=== PATIENT | female | born 1980 | race Caucasian/White ===

== ENCOUNTER 2025-01-05 13:05 | Outpatient (AMB) | payer MEDICARE, MEDICAID, SELFPAY ==
--- NOTE | 2025-01-05 13:08 | A.OFFVIS_ITS ---
Vital Signs 01/05/25 13:17 Height 5 ft 1 in Weight 174 lb 2.643 oz BMI 32.9 BP 116/70 Blood Pressure Location Rt brachial Position Sitting Pulse 68 Pulse Source Pulse Oximeter Pulse Oximetry (%) 99 Oxygen Delivery Method Room Air Intake Visit Reasons: Thyroid nodules Intake Note: New Patient presents here today to establish treatment for Thyroid Nodules: Former Hand Required: No Accompanied by: Mother Allergies No Known Allergies Allergy (Verified 01/05/25 13:19) Medication List - Last Reconciled 01/05/25 by Cierra Collins MD acetaminophen (Tylenol) 325 mg PO QID PRN buprenorphine ER (Sublocade) mg subcut clonidine HCl 0.1 mg PO TID PRN etonogestrel-ethinyl estradiol 0.12-0.015 mg/24 hr vag rings vaginal fluconazole 150 mg PO DAILY linaclotide (Linzess) 145 mcg PO DAILY lorazepam 0.5 mg PO meloxicam 15 mg PO DAILY metformin ER 500 mg PO DAILY propranolol 10 mg PO TID sennosides-docusate sodium 8.6-50 mg (Senexon-S) 2 tabs PO DAILY PRN trazodone 50 mg PO BEDTIME HPI Comments Details: 44 years old female with past medical history of vitamin-D deficiency, prediabetes, opiate abuse in remission, hyperlipidemia, seen in the office for evaluation of thyroid nodules. Patient is vague in her description, she reports that her labs are up and down for many years. She has never had any treatment as she failed to follow up with endocrinology. She denies changes in her symptoms. Her PCP ordered the US and thyroid labs given history of thyroid disease, but not due to new symptoms. Palpitations Heat/cold intolerance: yes, has hot flashes for years after having her daugher. Lately feeling freezing/cold all the time Weight loss: initially gained but in the last year or so has lost some weight Increased appetite: poor Tremor: yes Anxiety/irritability: yes Insomnia: yes Sweating: yes, intermittently Diarrhea/increased stool frequency: no, mostly constipated Menstrual irregularities: regular Muscle weakness: no Eye symptoms (redness, pain, proptosis, diplopia, vision changes): no Neck pain or swelling: no Precipitating or alleviating factors: not clear Recent illnesses, stressors, or exposures: no Previous episodes of hyperthyroidism: yes Family history of thyroid disease: everybody from mother side Recent or status: no Recent iodine exposure (contrast, amiodarone, supplements): Current and prior treatments (antithyroid drugs, beta-blockers, ZELAYA, surgery): no Biotin: no Physical exam: General: Well appearing. NAD. Neck/Thyroid: Thyroid palpable, no nodules. Eyes: No conjunctival injection, not lid lag or proptosis CV: RRR, no murmur. No edema. Resp:Lungs clear to auscultation bilaterally Abdomen: Soft, nontender. nondistended Extremities/Neuro: No weakness or tremor of outstretched hands Labs: TSH-T3+T4F (Report Date: 10/21/2024) T4, Free (Direct): 1.14 ng/dL (Reference: 0.82?1.77) Triiodothyronine (T3): 261 ng/dL (Reference: 71?180) H Above high normal TSH: <0.005 uIU/mL (Reference: 0.450?4.500) L Below low normal Thyroid Stim Immunoglobulin: <0.10 IU/L (Reference: 0.00?0.55) Thyroglobulin Antibody: <1.0 IU/mL (Reference: 0.0?0.9) Thyroid Peroxidase (TPO): 11 IU/mL (Reference: 0?34) Imaging: Thyroid ultrasound 11/28/2024 FINDINGS: Measurements: RIGHT LOBE: Current: 4.9 x 1.7 x 2.0 cm Previous measurement: No previous available LEFT LOBE: Current: 5.5 x 2.0 x 2.4 cm Previous measurement: No previous available ISTHMUS (AP): Current: 0.4 cm Previous measurement: No previous available Gland contour: The gland contour is distorted by nodules Background echogenicity: Homogeneous Background vascularity: Normal Masses: There are multiple bilateral thyroid nodules RIGHT LOBE Central and lower Circumscribed nearly isoechoic oval solid nodule with some posterior enhancement. There is internal color signal. There are a few internal bright reflectors. No evidence of extrathyroidal extension 11/28/24 ? 1.9 x 1.5 x 1.8 cm TR 6 Upper pole sharply circumscribed homogeneous hypoechoic nodule with a sharp back wall and posterior enhancement. No color signal. No calcification. No evidence of extrathyroidal extension. This may be a mildly complex cyst 11/28/24 ? 0.6 cm TR 0 LEFT LOBE Central and lower pole There is a heterogeneous mostly solid complex oval nodule with some coarse bright reflectors and areas of shadowing. There is some color signal. No definite extrathyroidal extension 11/28/24 ? 3.6 x 2.1 x 2.6 cm TR 4 Mid left lobe Circumscribed homogeneous hypoechoic solid oval nodule with long axis parallel. There is color signal. There are a few internal bright reflectors. No evidence of extrathyroidal extension 11/28/24 ? 1.6 x 1.0 x 1.1 cm TR 5 OTHER: Extrathyroidal extension: None Regional lymph nodes: No enlarged lymph nodes demonstrated IMPRESSION: Multiple bilateral thyroid nodules. FNA is recommended for the 3.6 cm TR 4 nodule in the left lobe and the 1.9 cm TR 6 nodule in the right lobe. Composition: cystic or spongiform: 0 pt mixed cystic and solid: 1 pt solid or almost completely solid: 2 pts Echogenicity: anechoic: 0 pt hyperechoic or isoechoic: 1 pt hypoechoic: 2 pts very hypoechoic: 3 pt Shape: wider than tall: 0 pt taller than wide: 3 pts Margin: smooth: 0 pt ill-defined: 0 pt lobulated/irregular: 2 pts extra-thyroidal extension: 3 pts Echogenic foci: none or large comet tail artifact: 0 pt macro-calcification: 1 pt peripheral/rim ca++: 2 pts punctate echogenic foci: 3 pts TR1: 0 pts; benign; no follow-up TR2: 2 pts; not suspicious; no FNA TR3: 3 pts; mildly suspicious; <=.5 cm f/u; >2.5 cm FNA TR4: 4?6 pts; moderately suspicious; <=.0 cm follow-up; 1.5 cm FNA TR5: 7 or > pts; highly suspicious; 0.5?0.9 cm f/u; 1.0 cm or > FNA [facility] Medical History (Updated 01/05/25 @ 14:21 by Cierra Collins MD) Vitamin D deficiency, unspecified Other dietary vitamin B12 deficiency anemia Nonscarring hair loss, unspecified Opioid abuse, in remission Attention and concentration deficit Generalized hyperhidrosis Constipation, unspecified Hyperlipidemia, unspecified Personal history of colonic polyps Family history of malignant neoplasm of digestive organs Acute thyroiditis Surgical History (Updated 12/27/24 @ 08:47 by CHAITANYA Balderrama) No pertinent past surgical history Family History (Updated 12/27/24 @ 08:29 by CHAITANYA Balderrama) Father Cancer of colon Mother Neoplasm of cervix Sister Acne Anemia Martin esophagus EDS (Rad-Danlos syndrome) GERD (gastroesophageal reflux disease) Meningioma POTS (postural orthostatic tachycardia syndrome) Syrinx Paternal Aunt Neoplasm of breast Social History (Updated 12/27/24 @ 08:47 by CHAITANYA Balderrama) Alcohol intake: current Alcohol intake frequency: does not drink Patient Tobacco Use Status: Tobacco use Unknown Substance Use Type: Opiates Physical Exam Vital Signs: Last Vital Signs Pulse 68 01/05/25 13:17 BP 116/70 01/05/25 13:17 Pulse Ox 99 01/05/25 13:17 Oxygen Delivery Method Room Air 01/05/25 13:17 BMI result Body Mass Index 32.9 Assessment & Plan Assessment & Plan (1) Multinodular goiter: Code(s): E04.2 - Nontoxic multinodular goiter Category: Medical (2) Hyperthyroidism: Code(s): E05.90 - Thyrotoxicosis, unspecified without thyrotoxic crisis or storm Category: Medical Plan: 44 years old female with past medical history of vitamin-D deficiency, pred iabetes, opiate abuse in remission, hyperlipidemia, seen in the office for evaluation of thyroid nodules. 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 She is largely asymptomatic from a hyperthyroid standpoint, with some non-specific symptoms (hair loss, fatigue, tremor, heat/cold intolerance, constipation), but no overt thyrotoxic symptoms (palpitations, weight loss, significant anxiety, or muscle weakness). Although T3 thyrotoxicosis could be in the setting of Graves disease or toxic single on multinodular goiter, her TSI is negative, making Graves' disease unlikely. The clinical picture is most consistent with toxic thyroid nodules (toxic adenoma or toxic multinodular goiter), but this requires confirmation with a radioactive iodine uptake scan to localize functional activity. There is no current indication for FNA until functional status of the nodules is clarified. We discussed that if hypothyroidism is untreated she is at risk for complications including atrial fibrillation and osteoporosis, even in the absence of classic symptoms. Plan Start propranolol 10 mg TID for tremor, palpitations, and other adrenergic symptoms Order RAIU scan to determine if one or both nodules are hyperfunctioning and to assess overall gland function. This will guide further management: radioiodine ablation vs. surgery vs moitoring. No antithyroid drugs at this time due to lack of hypothyroid symptoms, and to avoid interfering with RAIU scan. Provide patient with a low-iodine diet handout to follow until after RAIU scan and definitive therapy. Advise patient to call if symptoms worsen: palpitations, severe tremor, chest pain, new weakness, or mental status changes. Defer FNA of thyroid nodules until after functional status is determined. If nodules are non-functioning and we will consider FNA of the largest nodules: More than 1.5 cm= 3 3 nodules identified Plan 50 minutes spent reviewing previous records, labs, imaging, education and documenting in the chart Orders: Orders NM thyroid w uptake Today E05.90 - Thyrotoxicosis, unspecified without thyrotoxic crisis or storm Medications: New propranolol 10 mg PO TID 90 tabs 3RF E05.90 - Thyrotoxicosis, unspecified without thyrotoxic crisis or storm Patient Instructions: Low Iodine diet Purpose A low iodine diet (LID) is recommended for a short period (typically 4?14 days) before radioactive iodine (ZELAYA) therapy or scanning. The goal is to lower the body?s iodine stores, which may improve the effectiveness of ZELAYA by increasing uptake in thyroid tissue or cancer cells. Duration Typical duration: 4?7 days is sufficient in most cases, especially in areas with adequate iodine nutrition. Maximum duration: 2 weeks. Longer restriction is not necessary and may increase risk of nutritional imbalance. Garcias Principles Limit iodine intake to <50 mcg/day. Avoid foods high in iodine. Do NOT confuse a low iodine diet with a low salt diet. You may use non-iodized salt. Foods to AVOID Food/Ingredient Reason Iodized salt, sea salt High in iodine Dairy products (milk, cheese, yogurt, butter, ice cream) High in iodine Egg yolks and whole eggs High in iodine Seafood (fish, shellfish, seaweed, kelp, sushi) Very high in iodine Commercial bakery products (may contain iodate dough conditioners) Possible iodine source Red dye #3 (E127, erythrosine) Contains iodine Soy products (soy milk, tofu, soy sauce) May contain iodine Multivitamins or supplements containing iodine Obvious source Cough syrups, kelp supplements, herbal remedies with seaweed High in iodine Processed foods with unknown salt source May contain iodized salt Foods ALLOWED Food/Ingredient Notes Fresh meats (beef, pork, poultry, weaver) Not processed/cured with iodized salt Egg whites No yolk Fresh fruits and vegetables All types Grains: plain rice, pasta, oats, unsalted matzo, homemade bread (with non- iodized salt) Avoid commercial breads Unsalted nuts and nut butters Check labels Oils and fats: olive oil, vegetable oil, unsalted margarine (check label) No butter Sugar, honey, maple syrup Coffee, tea, non-dairy creamers (check label) No milk/cream Non-iodized salt Use for seasoning Herbs and spices (not blends with salt) Sample Meal Plan Breakfast: Oatmeal made with water, topped with fresh fruit Black coffee or tea Lunch: Grilled chicken breast Steamed vegetables Rice or baked potato (no butter) Snack: Fresh fruit Unsalted nuts Dinner: Baked fish (if not restricted) or lean beef/poultry Salad with olive oil and vinegar Homemade bread (with non-iodized salt) Additional Tips Read all labels. Avoid products with ?iodized salt,? ?sea salt,? ?kelp,? ?algin,? or ?carrageenan.? Do not eat out unless you can confirm ingredients. Do not use dairy substitutes (soy, almond, oat milks) unless confirmed iodine- free. Continue prescribed medications unless otherwise instructed. Do not take multivitamins or supplements unless cleared by your physician. Safety and Monitoring Hyponatremia risk: Elderly patients or those at risk for low sodium should have serum sodium monitored, as LID can inadvertently reduce salt intake. Nutritional balance: The LID is temporary. If you have difficulty maintaining adequate nutrition, contact your care team. Coding Level of Care Code New Pt Level 4 (86885) Complex EM visit Add On G2211 Diagnoses Multinodular goiter E04.2 Hyperthyroidism E05.90
[2025-01-05 13:17] VITALS: BP 116/70; PULSE 68; O2SAT 99; BMI 32.9
== END 2025-01-05 14:05 | disposition home or self-care (01) ==
LOC: HO.ENCR 13:05
PROVIDERS: PCP Physician Assistant Medical; Visit Provider Student in an Organized Health Care Education/Training Program
DX: E04.2 Nontoxic multinodular goiter (principal); E05.90 Thyrotoxicosis, unspecified without thyrotoxic crisis or storm
CPT/HCPCS: 99204; G2211

== ENCOUNTER → 2025-01-05 13:05 | Outpatient (BNVA) | payer MEDICARE, SELFPAY | PROVIDERS: PCP Physician Assistant Medical; Visit Provider Student in an Organized Health Care Education/Training Program | DX: E04.2 Nontoxic multinodular goiter (principal); E05.90 Thyrotoxicosis, unspecified without thyrotoxic crisis or storm | CPT/HCPCS: 99202 ==

== ENCOUNTER → 2025-02-08 09:37 | Outpatient (REF) | payer MEDICARE, MEDICAID, SELFPAY ==
--- NOTE | ~2025-02-08 | NM_ITS ---
EXAMINATION: CO THYROID IMAGING AND UPTAKE CLINICAL INFORMATION: E05.90 - Thyrotoxicosis, unspecified without thyrotoxic crisis or storm COMPARISON: There are no prior studies available for comparison. TECHNIQUE: Following the oral administration of 283 microcuries of I-123 sodium iodide, thyroid uptake was performed and expressed as a percentage of the administrated dose. Gamma scintillation camera images of the thyroid in the anterior and right and left anterior oblique views were obtained using a pinhole collimator following the administration of 10 mCi Tc-99m pertechnetate. FINDINGS: Images demonstrate multiple foci of increased activity in both thyroid lobes, suggestive of hot nodules. The uptake is 15.63% at 4 hours and 30.47% at 24 hours. NM/CO thyroid w uptake IMPRESSION: 1. Multiple foci of increased activity are seen in both thyroid lobes, suggestive of hot nodules. Ultrasound correlation is recommended. 2. Four-hour and 24-hour uptake within normal limits. Electronically signed by: Shiv Lopez MD 02/09/2025 11:18 AM ADITHYA
== END ==
LOC: HO.NUCMED 09:37
PROVIDERS: PCP Physician Assistant Medical; Visit Provider Student in an Organized Health Care Education/Training Program
DX: E05.90 Thyrotoxicosis, unspecified without thyrotoxic crisis or storm (principal)
CPT/HCPCS: 78014; A9512; A9516

== ENCOUNTER → 2025-02-08 09:40 | Outpatient (BNV) | payer MEDICARE, MEDICAID, SELFPAY | PROVIDERS: PCP Physician Assistant Medical; Visit Provider Radiology Diagnostic Radiology | DX: E05.90 Thyrotoxicosis, unspecified without thyrotoxic crisis or storm (principal); E07.89 Other specified disorders of thyroid | CPT/HCPCS: 78014 ==